=== PATIENT | male | born 1935 | race Caucasian/White ===

== ENCOUNTER 2016-11-27 14:36 | Inpatient (IN) | payer MEDICARE ==
[~2016-11-27] VITALS: Ht 182.9 cm; Wt 125.0 kg
[2016-11-27] VITALS (7 sets, daily range): BP systolic 125–135; BP diastolic 69–85; PULSE 76–88; RESP 16–20; O2SAT 96–100
[~2016-11-27 14:36] MED LIST: ANT25 PO; ASPI81TA35 PO; FURO80TA PO; K20 PO; LISI40TA13 PO; LOPRESSOR25 MG PO; LOV120 SQ; WARF7.5T2 PO
--- NOTE | 2016-11-27 16:04 | ED.REPORT ---
HPI-General Illness Date of Service Nov 27, 2016 ED Provider: Obed Cerrato MD This is an 81 year old male with a history of diverticulitis, hypothyroidism, and aortic valve replacement, anticoagulated on warfarin presenting to the emergency department due dark, tarry stools that began 8 hours ago. Pt reports two episodes of dark brown and black stool since awakening today. Associated symptoms include dizziness, lightheadedness, and LLQ abdominal pain. Denies fever, chills, nausea, vomiting, or dysuria. Nursing Notes Stated Complaint: POSSIBLE INTERNAL BLEEDING Chief Complaint: General Complaint Nursing Notes Reviewed: Yes Allergies: Coded Allergies: acetaminophen (Verified Allergy, Intermediate, Rash,Itching,, 03/21/11) Scheduled Aspirin (Aspirin) 81 Mg Tablet 81 MG PO DAILYWD Bumetanide (Bumetanide) 2 Mg Tablet 4 MG PO QAM Cholecalciferol (Vitamin D3) (Vitamin D3) 2,000 Unit Tablet 2,000 UNIT PO DAILY Gluc HCl/Csa/Antwon Hy/Hyalur AC (Glucosamine Chondroitin Cap) 1 Each Capsule 1 EACH PO BID Levothyroxine (Levothyroxine) 100 Mcg Tablet 100 MCG PO QAM Lisinopril (Lisinopril) 10 Mg Tablet 10 MG PO QAM Metoprolol Tartrate (Metoprolol Tartrate) 25 Mg Tablet 12.5 MG PO BID Multivit with Calcium,Iron,Min (Therapeutic M) 1 Each Tablet 1 EACH PO DAILY Potassium Chloride (Potassium Chloride) 10 Meq Capsule.er 20 MEQ PO DAILYWM TAKE WITH FOOD Tamsulosin ER (Tamsulosin ER) 0.4 Mg Cap.er.24h 0.4 MG PO DAILYWM Ubidecarenone (Coenzyme Q-10) 200 Mg Capsule 200 MG PO DAILY Warfarin Sodium (Warfarin Sodium) 5 Mg Tablet 7.5 MG PO MON/FRI WARFARIN 7.5 MG MON/FRI AND 5 MG ALL OTHER DAYS Warfarin Sodium (Warfarin Sodium) 5 Mg Tablet 5 MG PO DAILY EXCEPT MON/FRI WARFARIN 7.5 MG MON/FRI AND 5 MG ALL OTHER DAYS General Time Seen by MD: 16:01 Chief Complaint Other Hx Obtained From: Patient Arrived By: Walk-in Sudden in Onset?: Yes Onset Occurred: 5 - 8 hours ago Symptom Duration: Since onset Severity: Current: No pain currently Pertinent Negative: Pt denies other symptoms Recent Healthcare: No recent doctor visit, No recent hospitalization Similar Sx Previous: No Past Medical History Past Medical History Diverticulitis Hypothyroidism On warfarin Hx Bladder cancer Past Surgical History Open heart surgery Ambulatory Status Independent Review of Systems Full Review of Systems Constitutional: Denies: Chills, Fever Cardiovascular: Denies: Chest pain GI: Reports: Hematochezia, Denies: Abdominal pain, Diarrhea, Nausea, Vomiting Male: Denies Dysuria Neurologic: Reports: Dizziness, Lightheaded Complete sys rev & neg: except as marked. Physical Exam Vital Signs Vital Signs Date Time Temp Pulse Resp B/P Pulse Ox O2 Delivery O2 Flow Rate FiO2 11/27/16 17:30 86 16 129/78 99 Room Air 11/27/16 17:02 86 16 129/78 99 11/27/16 14:52 36.4 88 20 135/85 96 Room Air Initial VS: Reviewed General/Constitutional: Well-developed, Well-nourished Head / Eyes: Atraumatic, Normocephalic, PERRL ENT: Mucous membranes moist, Conjunctiva normal, No scleral icterus Neck: Supple, Non-tender, Full range of motion Respiratory: Breath sounds normal, Clear to auscultation, No respiratory distress Cardiovascular: Regular rate & rhythm, Heart sounds normal, Intact distal pulses Abdomen / GI: Soft, Non-tender, No guarding, No rebound, No distention Extremities: Vascular intact, Neuro intact, No swelling, No tenderness Skin: Warm, Dry, No cyanosis Neurologic: Alert, Oriented, Nonfocal Psychiatric: Mood/affect normal, Behavior normal, Normal thought content Rectum / Perineum: No fecal impaction, No fissures, No hemorrhoids Gross red blood Guaiac positive Interpretation & Diagnostics Lab Results Interpretation Result Diagram: 11/27/16 1555 11/27/16 1555 Test 11/27/16 15:55 11/27/16 16:00 11/27/16 17:05 White Blood Count 5.0th/mm3 (3.8-10.1) Red Blood Count 3.23mil/mm3 (4.40-5.80) Hemoglobin 8.6g/dL (13.8-17.2) Hematocrit 27.5% (41.0-50.0) Mean Corpuscular Volume 85.1fL (81-100) Mean Corpuscular Hemoglobin 26.6pg (27.0-35.0) Mean Corpuscular Hemoglobin Concent 31.3% (32.0-37.0) Red Cell Distribution Width 15.8% (12.3-15.4) Platelet Count 198bil/L (150-400) Neutrophils (%) (Auto) 75.2% (40-74) Lymphocytes (%) (Auto) 11.5% (14-46) Monocytes (%) (Auto) 12.5% (4-12) Eosinophils (%) (Auto) 0% (0-5) Basophils (%) (Auto) 0.6% (0-3) Prothrombin Time 23.6sec (8.1-12.5) Prothromb Time International Ratio 2.17ratio Sodium Level 133mEq/L (134-144) Potassium Level 4.3mEq/L (3.5-5.2) Chloride Level 92mEq/L (97-108) Carbon Dioxide Level 24mmol/L (18-29) Blood Urea Nitrogen 41mg/dL (8-27) Creatinine 1.33mg/dL (0.76-1.27) Estimat Glomerular Filtration Rate 55mL/min (>59) Glucose Level 119mg/dL (60-99) Calcium Level 9.4mg/dL (8.5-10.1) Total Bilirubin 1.7mg/dL (0.0-1.2) Aspartate Amino Transf (AST/SGOT) 30U/L (0-50) Alanine Aminotransferase (ALT/SGPT) 16U/L (0-44) Alkaline Phosphatase 180U/L (25-160) Total Protein 8.1g/dL (6.4-8.4) Albumin 4.0g/dL (3.4-5.0) Hold Urine Received (Received) ECG Interpretation ECG Interpretation: NSR at a rate of 86 RBBB Time: 16:44 Interpreted by: ED physician Re-Eval/Medical Decision Med Decision/Clinical Course 81-year-old male on Coumadin for history of aortic valve replacement presenting with rectal bleeding today. His stool is grossly bloody on my rectal exam. His hemoglobin is 8.6. Previous 9.6 from several years ago. He is hemodynamically stable. Discussed with GI who recommends admission with correction of INR and colonoscopy. Gave Vitamin K in ER. Consultation #1: Referral / Consult Name: Jacob Stephens MD Call Returned at: 16:33 Cost And Sales Record Supervisor: Agrees with eval, Agrees with plan Note: GI, plan for admission Consultation #2: Referral / Consult Name: Nayan Cash Consulted With: Hospitalist Call Returned at: 17:00 Cost And Sales Record Supervisor: Accepts admit Counseled Regarding: Diagnosis, Lab results, Need for follow-up, Need for admission Discharge & Departure Primary Impression: Gastrointestinal bleed GI bleed type/associated pathology: unspecified gastrointestinal hemorrhage type Qualified Code: K92.2 - Gastrointestinal hemorrhage, unspecified Disposition: ADMITTED TO HOSPITAL Discharge Condition All VS Reviewed: Yes Condition: Stable Referrals: Bridger Hitchcock DO (PCP) Scribe Attestation Portions of this note were transcribed by Em Melvin. I, Dr. Cerrato personally performed the history, physical exam and medical decision-making; I reviewed and confirmed the accuracy of the information in the transcribed note. Signed by Tami Benavidez, 11/27/2016 at 17:00. Obed Cerrato MD Nov 27, 2016 16:04 EM MELVIN Nov 27, 2016 16:08
[2016-11-27 16:08] LABS: BASOPHILS % (AUTO) 0.6 % (0-3); EOSINOPHILS % (AUTO) 0 % (0-5); MONOCYTES % (AUTO) 12.5 % (4-12); Mean Corpuscular Hemoglobin 26.6 pg (27.0-35.0); Mean Corpuscular Volume 85.1 fL (81-100); NEUTROPHILS % (AUTO) 75.2 % (40-74); Platelet Count 198 bil/L (150-400)
[2016-11-27 16:24] LABS: INR 2.17 ratio
[2016-11-27] MEDS ORDERED: 0.9% Sodium Chloride 1,000 ML IV ONE ×2 (16:24→19:20)
[2016-11-27] MEDS ORDERED: Phytonadione (Adult) 10 mg/1 mL Inj PO ONE (17:05)
[2016-11-27] MEDS ORDERED: Alum-Mag Hydrox-Simeth 30 mL Suspension PO PRN ×2 (17:05→19:20)
[2016-11-27] MEDS ORDERED: Ondansetron 2 mg/mL 2 mL Inj IVPUSH PRN ×2 (17:05→19:20)
[2016-11-27] MEDS ORDERED: WARF5TAB7 PO ×2 (17:24)
[2016-11-27] MEDS ORDERED: LISI10TA PO (17:24)
[2016-11-27] MEDS ORDERED: TAMS0.4C29 PO (17:24)
[2016-11-27] MEDS ORDERED: POTA10CA42 PO (17:24)
[2016-11-27] MEDS ORDERED: BUME2TAB3 PO (17:24)
[2016-11-27] MEDS ORDERED: CHOL200025 PO (17:27)
[2016-11-27] MEDS ORDERED: UBID200C31 PO (17:27)
[2016-11-27] MEDS ORDERED: LEVO100T6 PO (17:27)
[2016-11-27] MEDS ORDERED: ASPI-973 PO (17:27)
[2016-11-27] MEDS ORDERED: MULT-140 PO (17:27)
[2016-11-27] MEDS ORDERED: METO25TA6 PO (17:27)
[2016-11-27] MEDS ORDERED: GLUC1CAP13 PO (17:30)
--- NOTE | 2016-11-27 17:55 | NUR ---
Admission Pt arrived on [facility] by wheelchair to rm [id number]. A/Ox3, RA, no complains of increased pain, SOB. sts is " feeling light headed". Pt able to transfer self from wheel chair to bed. Pt orientation video in place. Oriented to , call light, and visiting hours. Will continue to monitor.
[2016-11-27 18:27] LABS: APPEARANCE,URINE CLEAR (CLEAR,HAZY); COLOR,URINE YELLOW (YELLOW); OCCULT BLOOD,URINE NEGATIVE (NEGATIVE); UROBILINOGEN,URINE NORMAL (NORMAL)
[2016-11-27] MEDS ORDERED: Polyethylene Glycol (PEG) 17 Gm Powder PO PRN (19:20)
--- NOTE | 2016-11-27 19:25 | PCM.HPMED ---
Subjective Date of Service Nov 27, 2016 Primary Provider: Admitting Physician: Nayan Cash Primary Care Physician: Bridger Hitchcock DO Attending Physician: Nayan Cash Chief Complaint: blood in stool History of Present Illness: 81 year old male with a history of diverticulosis, and aortic valve replacement with a mechanical valve and thus on chronic anticoagulation with Coumadin as well as distant history of peptic ulcer disease presents today with concern about blood in his stool. He says that he occasionally has hemorrhoidal bleeds but two days ago noticed that his stool color was different and appeared "brownish-red" and "mucousy". Last night he couldn't sleep because of his heart racing somewhat and this morning he had two more episodes of "brownish-red " stools. He had mild lightheadedness and mild left lower quadrant abdominal discomfort but managed to finish filing his taxes and running his errands. In the ED it is reported that patient's digital rectal exam was notable for fresh red blood. He received 10mg of PO Vitamin K and GI service has been notified and consulted. Patient otherwise denies any chest pain, SOB, nausea, vomiting or stomach pain. He denies any lightheadedness right now. Allergies Coded Allergies: acetaminophen (Verified Allergy, Intermediate, Rash,Itching,, 03/21/11) Home Medications Tamsulosin ER 0.4 Mg Cap.Er.24h 0.4 Mg PO DAILYWM Warfarin Sodium 5 Mg Tablet 7.5 Mg PO MON/FRI 30 Days WARFARIN 7.5 MG MON/FRI AND 5 MG ALL OTHER DAYS Lisinopril 10 Mg Tablet 10 Mg PO QAM 30 Days Metoprolol Tartrate 25 Mg Tablet 12.5 Mg PO BID 30 Days Aspirin 81 Mg Tablet 81 Mg PO DAILYWD Bumetanide 2 Mg Tablet 4 Mg PO QAM Potassium Chloride 10 Meq Capsule.Er 20 Meq PO DAILYWM Levothyroxine 100 Mcg Tablet 100 Mcg PO QAM Cholecalciferol (Vitamin D3) 2,000 Unit Tablet 2,000 Unit PO DAILY Multivit with Calcium,Iron,Min 1 Each PO DAILY Gluc HCl/Csa/Antwon Hy/Hyalur AC 1 Each PO BID Ubidecarenone 200 Mg Capsule (Coenzyme Q-10) 200 Mg PO DAILY Exam Vital Signs & I/O Vital Sign- Last 8 Hours Date Time Temp Pulse Resp B/P Pulse Ox O2 Delivery O2 Flow Rate FiO2 11/27/16 18:38 86 11/27/16 18:27 36.1 86 134/75 100 Room Air 11/27/16 17:30 86 16 129/78 99 Room Air 11/27/16 17:02 86 16 129/78 99 11/27/16 14:52 36.4 88 20 135/85 96 Room Air Lab & Micro Results Laboratory Tests Test 11/27/16 15:55 11/27/16 16:00 11/27/16 17:05 White Blood Count 5.0th/mm3 (3.8-10.1) Red Blood Count 3.23mil/mm3 (4.40-5.80) Hemoglobin 8.6g/dL (13.8-17.2) Hematocrit 27.5% (41.0-50.0) Mean Corpuscular Volume 85.1fL (81-100) Mean Corpuscular Hemoglobin 26.6pg (27.0-35.0) Mean Corpuscular Hemoglobin Concent 31.3% (32.0-37.0) Red Cell Distribution Width 15.8% (12.3-15.4) Platelet Count 198bil/L (150-400) Neutrophils (%) (Auto) 75.2% (40-74) Lymphocytes (%) (Auto) 11.5% (14-46) Monocytes (%) (Auto) 12.5% (4-12) Eosinophils (%) (Auto) 0% (0-5) Basophils (%) (Auto) 0.6% (0-3) Prothrombin Time 23.6sec (8.1-12.5) Prothromb Time International Ratio 2.17ratio Sodium Level 133mEq/L (134-144) Potassium Level 4.3mEq/L (3.5-5.2) Chloride Level 92mEq/L (97-108) Carbon Dioxide Level 24mmol/L (18-29) Blood Urea Nitrogen 41mg/dL (8-27) Creatinine 1.33mg/dL (0.76-1.27) Estimat Glomerular Filtration Rate 55mL/min (>59) Glucose Level 119mg/dL (60-99) Calcium Level 9.4mg/dL (8.5-10.1) Total Bilirubin 1.7mg/dL (0.0-1.2) Aspartate Amino Transf (AST/SGOT) 30U/L (0-50) Alanine Aminotransferase (ALT/SGPT) 16U/L (0-44) Alkaline Phosphatase 180U/L (25-160) Total Protein 8.1g/dL (6.4-8.4) Albumin 4.0g/dL (3.4-5.0) Hold Urine Received (Received) Urine Color Yellow (YELLOW) Urine Appearance Clear (CLEAR,HAZY) Urine pH 6.0 (5.0-8.0) Urine Specific [place] 1.010 (1.003-1.035) Urine Protein Negativemg/dL (NEG,TRACE) Urine Glucose (UA) Negativemg/dL (NEGATIVE) Urine Ketones Tracemg/dL (NEGATIVE) Urine Occult Blood Negative (NEGATIVE) Urine Nitrite Negative (NEGATIVE) Urine Bilirubin Negative (NEGATIVE) Urine Urobilinogen Normalmg/dL (NORMAL) Urine Leukocyte Esterase Negative (NEGATIVE) Urine RBC 0-2/hpf (0-2) Urine WBC 0-5/hpf (0-5) Urine Epithelial Cells Few/hpf (NONE-MOD) Urine Crystals None seen (NONE SEEN) Urine Bacteria Few/hpf (NONE-FEW) Urine Hyaline Casts None/lpf (NONE) Urine Granular Casts None seen (NONE SEEN) Urine Waxy Casts None seen (NONE SEEN) Urine Red Blood Cell Casts None seen (NONE SEEN) Urine White Blood Cell Casts None seen (NONE SEEN) Urine Mucus None seen (None Seen) Urine Trichomonas None seen (NONE SEEN) Urine Yeast None (NONE SEEN) Urinalysis Comment None Urine Culture Reflexed Not indicated Result Diagram: 11/27/16 1555 11/27/16 1555 Review of Systems: Constitutional: Negative, except as otherwise mentioned in the history above. Ophthalmologic: Negative, except as otherwise mentioned in the history above. Cardiovascular: Negative, except as otherwise mentioned in the history above. Respiratory: Negative, except as otherwise mentioned in the history above. Gastrointestinal: Negative, except as otherwise mentioned in the history above. Genitourinary: Negative, except as otherwise mentioned in the history above. Musculoskeletal: Negative, except as otherwise mentioned in the history above. Neurological: Negative, except as otherwise mentioned in the history above. Psychiatric: Negative, except as otherwise mentioned in the history above. Hematologic/Lymphatic: Negative, except as otherwise mentioned in the history above. Allergic/Immunologic: Negative, except as otherwise mentioned in the history above. PMH 1. History of [place] mechanical aortic valve replacement (on chronic Coumadin ) 2. Bladder cancer status post tumor resection 3. Hematuria. 4. Hypertension. 5. Coronary artery disease and 2-vessel bypass in 1995. 6. History of peptic ulcer disease many years ago, has not had any GI bleeding since then. 7. Hypertension. 8. Diverticulosis and diverticulitis 9. Possible diastolic heart failure Surgical History aortic valve replacement as noted above Family History denies any family history of heart disease or cancers Social History Hx Alcohol Use: Yes (1-2 drinks daily. denies any history of shakes, tremors, or withdrawals.) Hx Substance Use: No Hx Tobacco Use: No Exam Vital Signs Vital Sign - Last Date Time Temp Pulse Resp B/P Pulse Ox O2 Delivery O2 Flow Rate FiO2 11/27/16 18:38 86 11/27/16 18:27 36.1 134/75 100 Room Air 11/27/16 17:30 16 General: Alert, Oriented X3, Cooperative, No Acute Distress Head: Normal Eyes: PERRLA, EOMI, Scleral Anicteric Nose: Mucous Membr Moist/[place] Mouth: Mucous Membr Moist/[place] Neck: Supple Chest & Lungs: Chest Wall Normal, Clear to auscultation & percussion Cardiovascular: Regular Rate/Rhythm Pulses: NL carotid, radial, femoral, DP, PT Abdomen: Non-tender, Non-distended, Normoactive bowel tones, Soft Extremities: Other (1+ edema in LE bilat) Skin: Other (chronci arterial/venous insuff changes in LE bilat) Neurological: Grossly Neurologically Intact, Cranial Nerves 2-12 Intact, Normal Speech Lymphatic: Other Lymph Nodes (no significant lymphadenopathy) Additional Information: Psych: appropriate affect. Lab and Diagnostics Result Diagram: 11/27/16 1555 11/27/16 1555 Assessment & Plan 81 year old male with a history of diverticulosis, and aortic valve replacement with a mechanical valve and thus on chronic anticoagulation with Coumadin as well as distant history of peptic ulcer disease presents with concern about blood in his stool. # Acute gastrointestinal bleed, present on admission. ongoing - unclear at this time if upper or lower GI. His has a risk of both given history of diverticulosis and peptic ulcer in the past. There is some conflicting report between patient and ED report about possible melanotic stool. - NPO - start Protonix drip - check serial h/h - hold home dose Aspirin and Coumadin - already received Vit K in the ED. Followup repeat INR in AM - GI consulted already in the ED. Will followup with official recommendations # History of mechanical aortic valve and chronic anticoagulation, preset on admission. - INR reversal with Vit K as noted above - followup repeat INR in AM - resume anticoagulation as soon OK by GI consult # Acute kidney injury. present on admission. - likely pre-renal from ongoing bleeding - IV fluid and followup - avoid nephrotoxic medications # Chronic normocytic anemia. present on admission. - h/h is about baseline on admission though I suspect his true h/h is much lower given likely intervascular dehydration as evident by BUN/Cr - follow serial h/h as noted above # History of coronary artery disease and hypertension. currently stable - hold ASA as noted - hold blood pressure medications as well until certain will remain hemodynamically stable # Hypothyroidism, chronic. presume stable - continue with home dose Levothyroxine - check TSH # Possible chronic diastolic heart failure with chronic lower extremity edema. appears stable and compensated at this time. - hold home dose diuretics until certain hemodynamically stable as well as given evidence of MUSHTAQ Expected length of hospital stay is greater than 2 midnights and likely 2-3 days Time spent 60 min Nayan Cash Nov 27, 2016 19:25
[2016-11-27] MEDS: Pantoprazole Inj 80 MG in 0.9% Sodium Chloride 80 ML IV SCH (20:26)
--- NOTE | 2016-11-27 23:18 | CONS ---
[address] [address] CONSULTATION REPORT PATIENT: SHARYN AGEE : 1935 MR#: [id number] ADMIT: 11/27/2016 JOB ID: [id number] DATE OF SERVICE: 11/27/2016 REASON FOR CONSULTATION: Bright red blood per rectum. HISTORY OF PRESENT ILLNESS: This is an 81-year-old male with history of diverticulitis, hypothyroidism, aortic valve replacement, currently on Coumadin, who presents here for bright red blood per rectum for the past two days. The patient states he has seen bright red blood per rectum that covers his stool toilet one time per day. The patient states he had an EGD 16 years ago which showed a gastric ulcer which was oozing and he states that this was treated at that point in time. The patient also states he had a colonoscopy that was done in the past, greater than 10 years ago, which showed a few colon polyps. I have no records of these procedures. The patient states he had a history of diverticulitis that was seen on CAT scan. No diverticula he said was noticed on the colonoscopy. The patient denies melena, nausea, vomiting, hematemesis, abdominal pain, change in bowel habits, or unintentional weight loss. The patient presents for further evaluation. The patient was found to have an INR of 2.17 occurring on Coumadin. BUN 41 with creatinine of 1.33. The patient's hemoglobin is 8.6, hematocrit 27.5, MCV 85, white blood cell count 5.0, platelet count 198. The patient presents for further evaluation. PAST MEDICAL HISTORY: As stated above. Diverticulitis, hypothyroidism, aortic valve replacement, on Coumadin, history of bladder cancer. PAST SURGERIES: Aortic valve replacement. ALLERGIES: ACETAMINOPHEN. MEDICATIONS: Scheduled medications: He is currently on aspirin, Lovenox, Lasix, lisinopril, metoprolol, potassium chloride, Coumadin, and meclizine as needed. SOCIAL HISTORY: Unknown. FAMILY HISTORY: Negative for colon cancer, inflammatory bowel disease, or celiac disease. REVIEW OF SYSTEMS: The patient denies headache, blurred vision, nausea, vomiting, chest pain, shortness of breath, abdominal pain, skin rash, joint pain. PHYSICAL EXAMINATION: Vital signs upon presentation: Temperature is 36.4, pulse 83, respiratory rate 16, blood pressure 129/78, 99% on room air. General: In no acute distress. Head: No scars. Eyes: Anicteric. Throat: Supple. Lungs: Clear to auscultation bilaterally. Cardiovascular: Regular rhythm and rate. Abdomen: Soft, nondistended, nontender. Normal bowel sounds. Extremities: No cyanosis, clubbing, edema. LABORATORIES: White count 5.0, hemoglobin 8.6, hematocrit 27.5, MCV 85, platelet count 198. Chemistry: Sodium 133, potassium 4.3, chloride 92, bicarbonate 24, BUN 41, creatinine 1.23, glucose 119, calcium 9.4, total bili 1.7, AST 30, ALT 16, alk phos 180, total protein 8.1, albumin 4..0 PTT 23.6, INR 2.1. ASSESSMENT AND PLAN: This is an 81-year-old male with history of aortic valve replacement, on Coumadin, diverticulitis, hypothyroidism, presents here for consultation for rectal bleeding. Differential diagnosis includes arteriovenous malformation, bleeding polyp, diverticulosis versus hemorrhoids. RECOMMENDATIONS: 1. N.p.o. except for medications. 2. Transfuse packed red blood cells per hospitalist team as needed. 3. Once the INR has improved tomorrow then we will consider doing GoLYTELY prep tomorrow with a colonoscopy with anesthesia for Sunday. Will continue to follow. Patient's INR goal needs to be less than 1.5 for colonoscopy to proceed.
[2016-11-28 01:08] VITALS: BP 106/60; PULSE 78; RESP 18; O2SAT 97
[2016-11-28 05:06] LABS: APPEARANCE,URINE CLEAR (CLEAR,HAZY); COLOR,URINE YELLOW (YELLOW); OCCULT BLOOD,URINE NEGATIVE (NEGATIVE); PH,URINE 5.5 (5.0-8.0); UROBILINOGEN,URINE NORMAL (NORMAL)
[2016-11-28 05:31] VITALS: BP 115/71; PULSE 74; RESP 18; O2SAT 96
--- NOTE | 2016-11-28 06:16 | NUR ---
Uneventful Night Pt rested intermittently during the night. Denies chest pain or discomfort. Denies SOB, N/V. No complaints of pain. NPO. Call light within reach, using appropriately. Pleasant and cooperative with care.
[2016-11-28 07:03] LABS: Mean Corpuscular Hemoglobin 26.8 pg (27.0-35.0); Mean Corpuscular Volume 86.4 fL (81-100)
[2016-11-28 07:10] LABS: INR 1.91 ratio
[2016-11-28 07:37] LABS: Magnesium 2.3 mg/dL (1.6-2.6)
[2016-11-28] MEDS: Pantoprazole Inj 80 MG in 0.9% Sodium Chloride 80 ML IV SCH ×2 (08:10→18:23)
[2016-11-28] MEDS ORDERED: Non-Formulary Medication (Ubidecarenone (Coenzyme Q-10) 200 MG) PO SCH (08:30)
[2016-11-28 09:29] VITALS: BP 112/62; PULSE 79; RESP 18; O2SAT 100
--- NOTE | 2016-11-28 10:35 | PCM.PNMED ---
Subjective Date of Service Nov 28, 2016 Subjective GASTROENTEROLOGY PROGRESS NOTE: Patient reports mild discomfort in the left lower quadrant abdomen from the fasting. He notes similar discomfort in the past when he skipped meals and states that it is related to the diverticulitis he had before. Otherwise, he denies any symptoms today. No overt signs of bleeding. His last BM was yesterday and it was dark brown per the patient. He denies nausea, vomiting, hematemesis, CP, SOB, or dizziness. He has not gotten any blood transfusion so far. His INR trending down to 1.91 today. Exam Vital Signs Vital Sign - Last Date Time Temp Pulse Resp B/P Pulse Ox O2 Delivery O2 Flow Rate FiO2 11/28/16 09:29 36.6 79 18 112/62 100 Room Air Intake and Output 11/27/16 11/27/16 11/28/16 Cumulative From/Thru 15:00 23:00 07:00 11/27/16 14:52 - 11/28/16 06:32 Intake Total 500 ml 877 ml 1377 ml Output Total 1600 ml 1600 ml Balance 500 ml -723 ml -223 ml Intake Oral 0 ml 0 ml IV Total 500 ml 877 ml 1377 ml Output Urine Total 1600 ml 1600 ml Exam General: Alert, Oriented X3, Cooperative, Sitting comfortably on a chair. No Acute Distress HEENT: NCAT. EOMI. Scleral anicteric. Mucous Membr Moist/[place] Neck: Supple Respiratory: Chest Wall Normal, Clear to auscultation & percussion, No wheezes/ rales/rhonchi. Cardiovascular: Regular Rate/Rhythm, III/ systolic murmur. Abdomen: Soft, Non-tender, Non-distended, Normoactive bowel tones, No organomegaly noted. Lower extremities: Mild-moderate pitting edema in bilateral lower extremities. No clubbing or cyanosis. Severe dry, scaly skin. Neurological: Grossly Neurologically Intact, Cranial Nerves 2-12 Intact, Normal Speech IVs and Medications Medications Reviewed: Medications were reviewed in detail Lab and Diagnostics Result Diagram: 11/28/1661411/28/16614 Assessment & Plan This is an 81-year-old male with history of aortic valve replacement, on Coumadin, diverticulitis, hypothyroidism, presents here for consultation for rectal bleeding. Assessments 1. Rectal bleeding, acute. 2. History of gastric ulcer. 3. History of diverticulitis. 4. Chronic anticoagulation on coumadin. Plans: - Differential diagnosis includes arteriovenous malformation, bleeding polyp, diverticulosis, or hemorrhoids. - Last colonoscopy was over 10 years ago that showed some polyps. - Continue NPO except for meds. - Continue Protonix drip. - Patient has no signs or symptoms of acute diverticulitis. GoLYTELY prep ordered for 1600 today to prepare for colonoscopy with anesthesia tomorrow 2016. - Continue to monitor CBC and INR. Patient's INR's goal needs to be less than 1.5 for colonoscopy to proceed. - H/H have been stable. Transfusion as needed per hospitalist team. Thank you for the consultation and do not hesitate to contact us for any question or concern. Pain Evaluation: Adequate Pain Control GI Prophylaxis: Proton Pump Inhibitor Resuscitation Status: CPR: Attempt Resuscitation Alejandra Young DO Nov 28, 2016 10:35 - follow serial h/h as noted above # History of coronary artery disease and hypertension. currently stable - hold ASA as noted - hold blood pressure medications as well until certain will remain hemodynamically stable # Hypothyroidism, chronic. presume stable - continue with home dose Levothyroxine - check TSH # Possible chronic diastolic heart failure with chronic lower extremity edema. appears stable and compensated at this time. - hold home dose diuretics until certain hemodynamically stable as well as given evidence of MUSHTAQ Expected length of hospital stay is greater than 2 midnights and likely 2-3 days Alejandra Young DO Nov 28, 2016 10:35
[2016-11-28 10:52] VITALS: PULSE 88
[2016-11-28 15:46] VITALS: BP 132/66; PULSE 89; RESP 18; O2SAT 100
[2016-11-28] MEDS ORDERED: PEG/Electrolytes 4,000 mL Solution PO ONE (16:00)
--- NOTE | 2016-11-28 17:27 | PCM.PNMED ---
Subjective Date of Service Nov 28, 2016 Subjective no further stool or blood per rectum since yesterday. Exam Vital Signs Vital Sign - Last Date Time Temp Pulse Resp B/P Pulse Ox O2 Delivery O2 Flow Rate FiO2 11/28/16 15:46 36.7 89 18 132/66 100 Room Air Intake and Output 11/27/16 11/27/16 11/28/16 Cumulative From/Thru 15:00 23:00 07:00 11/27/16 14:52 - 11/28/16 06:32 Intake Total 500 ml 877 ml 1377 ml Output Total 1600 ml 1600 ml Balance 500 ml -723 ml -223 ml Intake Oral 0 ml 0 ml IV Total 500 ml 877 ml 1377 ml Output Urine Total 1600 ml 1600 ml Exam General: Alert, Cooperative, No Acute Distress Head: Normal Eyes: PERRLA, EOMI, Scleral Anicteric Nose: Mucous Membr Moist/[place] Mouth: Mucous Membr Moist/[place] Neck: Supple Chest & Lungs: Chest Wall Normal, Clear to auscultation bilaterally Cardiovascular: Regular Rate/Rhythm Abdomen: Non-tender, Non-distended, Normoactive bowel tones, Soft Extremities: Other (1+ edema in LE bilat) Skin: Other (chronic arterial/venous insufficiency changes in LE bilat) Neurological: Grossly Neurologically Intact, Normal Speech IVs and Medications Medications Reviewed: Medications were reviewed in detail Lab and Diagnostics Result Diagram: 11/28/1661411/28/16614 Assessment & Plan 81 year old male with a history of diverticulosis, and aortic valve replacement with a mechanical valve and thus on chronic anticoagulation with Coumadin as well as distant history of peptic ulcer disease presents with concern about blood in his stool. # Acute gastrointestinal bleed, present on admission. - unclear at this time if upper or lower GI. His has a risk of both given history of diverticulosis and peptic ulcer in the past. There is some conflicting report between patient and ED report about possible melanotic stool. - h/h stable - appreciate GI consult. will followup with recs - continue Protonix drip - hold home dose Aspirin and Coumadin - already received Vit K in the ED. Followup repeat INR in AM # History of mechanical aortic valve and chronic anticoagulation, preset on admission. - INR reversal with Vit K as noted above - followup repeat INR in AM - resume anticoagulation as soon OK by GI consult # Acute kidney injury. present on admission. Resolved - likely pre-renal - avoid nephrotoxic medications # Chronic normocytic anemia. present on admission. - h/h is about baseline and stable. - follow repeat labs in AM or sooner if has further bloody bowel movement # History of coronary artery disease and hypertension. currently stable - hold ASA as noted - resume home medication # Hypothyroidism, chronic. presume stable - continue with home dose Levothyroxine - TSH elevated - check rest of thyroid panel # Possible chronic diastolic heart failure with chronic lower extremity edema. appears stable and compensated at this time. - Resume home dose diuretics in am Dispo: 1-2 days pending GI workup GI Prophylaxis: Proton Pump Inhibitor Resuscitation Status: CPR: Attempt Resuscitation Nayan Cash Nov 28, 2016 17:27
[2016-11-28 19:53] VITALS: BP 127/63; PULSE 79; RESP 18; O2SAT 98
[2016-11-29] VITALS (12 sets, daily range): BP systolic 70–125; BP diastolic 45–71; PULSE 54–90; RESP 12–18; O2SAT 97–100
--- NOTE | 2016-11-29 01:15 | NUR ---
Bowel Prep Pt completed bowel prep at 1945, reports BM's clear. No complaints of chest pain or discomfort. Denies SOB, n/v. Call light within reach, using appropriately. Frequent rounding in place. Pleasant and cooperative with care.
[2016-11-29 02:10] LABS: Thyroxine (T4) 4.8 ug/dL (4.5-12.0)
[2016-11-29] MEDS: Pantoprazole Inj 80 MG in 0.9% Sodium Chloride 80 ML IV SCH ×3 (05:38→20:38)
[2016-11-29 06:22] LABS: INR 1.57 ratio
[2016-11-29 06:32] LABS: Mean Corpuscular Hemoglobin 26.7 pg (27.0-35.0); Mean Corpuscular Volume 87.5 fL (81-100)
--- NOTE | 2016-11-29 10:51 | PCM.PNMED ---
Subjective Date of Service Nov 29, 2016 Subjective no further blood in stool despite the bowel prep yesterday. denies any other new issues/complaints Exam Vital Signs Vital Sign - Last Date Time Temp Pulse Resp B/P Pulse Ox O2 Delivery O2 Flow Rate FiO2 11/29/16 10:40 36.6 82 18 118/71 99 Room Air Intake and Output 11/28/16 11/28/16 11/29/16 Cumulative From/Thru 15:00 23:00 07:00 11/27/16 14:52 - 11/29/16 06:30 Intake Total 302 ml 265 ml 1944 ml Output Total 325 ml 600 ml 2525 ml Balance -23 ml -335 ml -581 ml Intake Oral 0 ml 0 ml 0 ml IV Total 302 ml 265 ml 1944 ml Output Urine Total 325 ml 600 ml 2525 ml # Bowel Movements 3 3 6 Exam General: Alert, Cooperative, No Acute Distress Head: Normal Eyes: PERRLA, EOMI, Scleral Anicteric Nose: Mucous Membr Moist/[place] Mouth: Mucous Membr Moist/[place] Neck: Supple Chest & Lungs: Chest Wall Normal, Clear to auscultation bilaterally Cardiovascular: Regular Rate/Rhythm Abdomen: Non-tender, Non-distended, Normoactive bowel tones, Soft Extremities: Other (1+ edema in LE bilat) Skin: Other (chronic arterial/venous insufficiency changes in LE bilat) Neurological: Grossly Neurologically Intact, Normal Speech IVs and Medications Medications Reviewed: Medications were reviewed in detail Lab and Diagnostics Result Diagram: 11/29/16 0600 11/29/16 0600 Assessment & Plan 81 year old male with a history of diverticulosis, and aortic valve replacement with a mechanical valve and thus on chronic anticoagulation with Coumadin as well as distant history of peptic ulcer disease presents with concern about blood in his stool. # Acute gastrointestinal bleed, present on admission. - unclear at this time if upper or lower GI. His has a risk of both given history of diverticulosis and peptic ulcer in the past. There is some conflicting report between patient and ED report about possible melanotic stool. - h/h stable since admission - appreciate GI consult. will followup with recs - continue Protonix drip - hold home dose Aspirin and Coumadin until OK by GI - received Vit K 10mg PO in the ED. INR subtherapeutic today - plan for colonoscopy later today # History of mechanical aortic valve and chronic anticoagulation, preset on admission. - INR reversal with Vit K as noted above - resume anticoagulation as soon as possible and OK by GI consult # Acute kidney injury. present on admission. Resolved - likely pre-renal - avoid nephrotoxic medications # Chronic normocytic anemia. present on admission. - h/h is about baseline and stable. - follow repeat labs in AM or sooner if has further bloody bowel movement # History of coronary artery disease and hypertension. currently stable - hold ASA as noted - continue with home medication # Hypothyroidism, chronic. presume stable - continue with home dose Levothyroxine - TSH elevated but T4 within normal limit (although borderline normal at lower end). May consider increasing dose of Levothyroxine but will defer to primary care provider as outpatient so as to followup progress appropriately. # Possible chronic diastolic heart failure with chronic lower extremity edema. appears stable and compensated at this time. - Resume home dose diuretics in am if remain stable after colonoscopy Dispo: 1-2 days pending GI workup as well as resumption of anticoagulation and bridging back to Coumadin (for mechanical aortic valve) GI Prophylaxis: Proton Pump Inhibitor Resuscitation Status: CPR: Attempt Resuscitation Nayan Cash Nov 29, 2016 10:51
--- NOTE | 2016-11-29 11:25 | NUR ---
Wound Care 81 yo male admitted to [facility] with GI bleed, wound order to assess legs received and patient seen at bedside. Claus le's are edematous 2+ and heavy with stasis dermatitis, Wound on right lateral lower leg has irregular borders and is 7 cm L x 4 cm W x 0.1 cm D, wound is cleaned with saline and gauze, dressed with aquacell ag, and a 4 layer compression wrap. No signs or symptoms of [id number] at wound site. Stasis ulceration at right lower leg, good pulses, compression wrapped will change dressing 12/01.
[2016-11-29] MEDS ORDERED: Ketamine 10 mg/mL 20 mL Inj ONE (13:17)
[2016-11-29] MEDS ORDERED: Propofol 10,000 mCg/mL 20 mL Inj ONE (13:17)
--- NOTE | 2016-11-29 14:22 | NUR ---
Social Work-initial assessment: Data:See initial assessment. Pt is an 81 y/o male who was admitted on 11/29/16 for GI bleed per H&P. Pt's insurance is [employer] and PCP is Bridger Hitchcock MD. EMR Reviewed. Pt's readmission score is 3-high risk. SW met with pt at bedside to discuss discharge planning, SW role explained. Pt is alert and oriented x3. Pt resides at home alone in a 2 level home with 10 internal steps and no steps to enter where pt remains independent with basic ADLs. Pt uses a cane at baseline and drives POV. Pt has no HH or SNF history. Pt reports he has completed DPOA/ advanced directive and will provide the hospital with a copy. Pt has no termite renewal inspector care or VA benefits. Per morning rounds pt to undergo colonoscopy today. Pt to discharge home via self in POV or via son. SW provided phone number and plan on white board in room. No further needs assessed at this time. SW will continue to follow. Assessment:Pt who resides at home alone. Plan:Pt to likely discharge home with no needs via POV. Pt will undergo colonoscopy. SW will continue to follow. RYLEE Serrano Addendum: 11/29/16 at 1434 by DAVID ZHOU SS Amended: Links added.
--- NOTE | 2016-11-29 15:11 | NUR ---
Off unit Pt off unit to Endo for colonoscopy. [employer] notified. Addendum: 11/29/16 at 1640 by DENNYS OCASIO RN Pt back on unit, bench repair technician notified.
[2016-11-29] MEDS ORDERED: Lactated Ringer's 1,000 ML IV ONE ×2 (15:29→16:08)
--- NOTE | 2016-11-29 15:32 | PCM.HPANE ---
Patient Data Surgeon Admitting Provider:Nayan Cash Attending Provider:Nayan Cash Primary Care Physician:Bridger Hitchcock DO Other Provider: Reason for Visit Gi Bleed Ht/WT & BMI Height (Feet): 6 Height (Inches): 0.00 Weight (Kilograms): 131.300 Body Mass Index 39.00 Allergies Coded Allergies: acetaminophen (Verified Allergy, Intermediate, Rash,Itching,, 11/27/16) Past Anesthesia History Anesthesia History: Denies:: Anesthesia Reactions Diabetes History Hx Diabetes?: No MRSA MRSA: No Medications Blood Thinner: Coumadin Last Dose Blood Thinner: Nov 27, 2016 Hypertension Medication: Yes Home Meds Incl Beta Eden: Yes Date Beta Eden Taken: Nov 29, 2016 Time Beta Eden Taken: 08:00 Reported Medications Gluc HCl/Csa/Antwon Hy/Hyalur AC (Glucosamine Chondroitin Cap)1 Each Capsule1 Each PO BID 11/27/16 Multivit with Calcium,Iron,Min (Therapeutic M)1 Each Tablet1 Each PO DAILY 11/27/16 Cholecalciferol (Vitamin D3) (Vitamin D3)2,000 Unit Tablet2,000 Unit PO DAILY 11/27/16 Ubidecarenone (Coenzyme Q-10)200 Mg Ifmpkef088 Mg PO DAILY 11/27/16 Aspirin 81 Mg Efdkqw06 Mg PO DAILYWD Ref 0 11/27/16 Metoprolol Tartrate 25 Mg Keusjb05.5 Mg PO BID 30 Days Ref 0 11/27/16 Levothyroxine 100 Mcg Cowdhf968 Mcg PO QAM For Thyroid Replacement Ref 0 11/27/16 Warfarin Sodium 5 Mg Tablet5 Mg PO DAILY EXCEPT MON/FRI 30 Days Ref 0 WARFARIN 7.5 MG MON/FRI AND 5 MG ALL OTHER DAYS 11/27/16 Warfarin Sodium 5 Mg Tablet7.5 Mg PO MON/FRI 30 Days Ref 0 WARFARIN 7.5 MG MON/FRI AND 5 MG ALL OTHER DAYS 11/27/16 Tamsulosin ER 0.4 Mg Cap.er.24h0.4 Mg PO DAILYWM Ref 0 11/27/16 Lisinopril 10 Mg Yyubmd42 Mg PO QAM 30 Days Ref 0 11/27/16 Potassium Chloride 10 Meq Capsule.er20 Meq PO DAILYWM 30 Days Ref 0 TAKE WITH FOOD 11/27/16 Bumetanide 2 Mg Tablet4 Mg PO QAM Ref 0 11/27/16 Discontinued Reported Medications Enoxaparin-Expunged Drug, Do Not Renew! (Lovenox-Expunged Drug, Do Not Renew!) 120 Mg/0.8 Ml Disp.uskau753 Mg SQ BID 03/17/11 Lisinopril-Expunged Drug, Do Not Renew! 40 Mg Eaawiz92 Mg PO AM 03/17/11 Meclizine-Expunged Drug, Do Not Renew! 25 Mg Xmwpey12 Mg PO Q8 PRN 03/17/11 Potassium Chl-Expunged Drug, Do Not Renew! (A-Nex-Rsnpnuma Drug, Do Not Renew!) 20 Meq Tab.er.prt20 Meq PO HS 03/17/11 Metoprolol Tart-Expunged Drug, Do Not Renew! 25 Mg Tab12.5 Mg PO BID 03/17/11 Warfarin Sodium Inactive Drug Do Not Use (Coumadin Inactive Drug Do Not Use)7.5 Mg Tablet7.5 Mg PO 6x weekly Sun pt takes 10mg 03/16/11 Furosemide-Expunged Drug, Do Not Renew! (Lasix-Expunged Drug, Do Not Renew!)80 Mg Mhfbhr30 Mg PO HS 03/16/11 Aspirin-Expunged Drug, Do Not Renew! ([place] Aspirin-Expunged Drug, Do Not Renew)81 Mg Tab.chew81 Mg PO DAILYWD 03/16/11 History History of ENT Problems?: No HEENT History: Denies:: Abnormal Airway Cataracts Difficult Intubation Dysphagia Glaucoma Hearing Problem Sinus Problem Denture Type: None Teeth Condition: Within Normal Limits Hx of Heart Problems?: Yes Cardiovascular History: Positive for:: Cardiac Surgery (Valve replacement 11yrs ago) Edema (chronic) Hypertension Valvular Heart Disease (replacement) Denies:: Chest Pain Congestive Heart Failure Heart Murmur Irregular Heartbeat Pacemaker Thrombophlebitis Hx of Respiratory Problem?: Yes Respiratory History: Positive for:: 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) Denies:: Asthma COPD Chest Surgery Dyspnea Emphysema Hemoptysis Pneumonia Hx Neurologic Problems?: No Neurological History: Denies:: Alzheimer's Disease CVA Dementia Dizziness Headaches Multiple Sclerosis Parkinson's Disease Peripheral Neuropathy Seizures TIA Hx of GI Problems?: Yes Gastrointestinal History: Positive for:: Diverticulitis Heartburn Rectal Bleeding (minimal with hard bm somtimes, redish black in color) Denies:: Gastrointestinal Bleeding Hepatitis Hiatal Hernia Hx of Problems?: Yes Genitourinary History: Positive for:: Kidney Stones Denies:: HX of Hemodialysis Urinary Tract Infection HX of Peritoneal Dialysis: No Male Hx: Denies:: Prostate Problems Scrotal Mass Testicular Surgery Skin History: Positive for:: History Skin Disorders? (Skin cancers. sebborhea dermatitis) Hx Musculoskeletal Problems?: No Musculoskeletal History: Denies:: Back Injury Joint Replacement Musculoskeletal Trauma Hx of Psycho/Social Problems?: No Psycho Social History: Denies:: Anxiety Bipolar Disorder Hx Depression Suicide Attempt Hx Surgeries?: Yes (appy, tonsills,CABG, valve replacment, cystoscopy & tumor removal) Hx Any Other Health Problems?: Yes Other History: Positive for:: Cancer (bladder cancer, skin ) Hospitalization Thyroid Disease (hypothryoid) Denies:: Endocrine Disease History Blood Transfusions: Positive for:: Accept Blood Products? Blood Transfusions Denies:: Blood Transfuse Reaction Hx Diabetes: No Hx Alcohol Use: Yes (1-2 drinks daily. denies any history of shakes, tremors, or withdrawals.)Hx Substance Use: No Smoking Status: Never Smoker Have You Smoked inLast 12 mo: No Stop/Bang Treated for Sleep Apnea?: No Do You Have a CPAP Machine?: No S-Snoring: Do You Snore Loudly: No T-Tired: feel tired, fatigued: No O-Obsered: Observed not breath: No P-Blood Pressure: treated: Yes B- Body Mass Index > 35 kg/m2: No A- Age over 50: Yes N- Neck Large Circumference: No G- Gender Male: Yes LUCY Total Score: 3 LUCY Risk Assessment: High Risk, =/>3 Yes LUCY Category 4 OutPt Procedure: Yes Risk Assessment Category Category 1A: Patient has history of documented sleep apnea, and HAS NOT received any narcotic, sedative or anesthesia administration during this stay. Category 1B: Patient has history of documented sleep apnea, and HAS received any narcotic , sedative or anesthesia administration during this stay Category 2: Patient has SUSPECTED Obstructive Sleep Apnea, and HAS received any narcotic , sedative or anesthesia administration during this stay. Category 3: Patient has SUSPECTED Obstructive Sleep Apnea and HAS NOT received narcotic, sedative or anesthesia administration during this stay. Category 4: Outpatient in Procedural Areas with known sleep apnea or who screen positive for High Risk via the STOP/BANG questionnaire. Exam Exam Vital Signs Vital Signs Date Time Temp Pulse Resp B/P Pulse Ox O2 Delivery O2 Flow Rate FiO2 11/29/16 15:21 36.1 68 14 120/68 100 Room Air 11/29/16 13:59 36.6 79 18 103/54 100 Room Air 11/29/16 11:22 62 11/29/16 10:40 36.6 82 18 118/71 99 Room Air 11/29/16 09:18 90 123/68 General Appearance: Alert, Oriented X3, Cooperative, No Acute Distress HEENT/AIRWAY: MP 2 Lungs: Clear to Auscultation, Normal Air Movement Heart: Exam Unremarkable, Regular Rate/Rhythm, No Murmurs/Rubs/[place] Meds/Labs/Diagnostics Admission Meds Current Medications Polyethylene Glycol/ Electrolytes (Colyte) 4,000 ml ONCE ONCE PO Last administered on 11/28/16 16:04; Start 11/28/16 at 16:00; Stop 11/28/16 at 16:01 ; Status DC Lisinopril (Zestril) 10 mg DAILY PO Last administered on 11/29/16 09:22; Start 11/29/16 at 08:30 Metoprolol Tartrate (Lopressor) 12.5 mg BID PO Last administered on 11/29/16 09:22; Start 11/28/16 at 20:30 Tamsulosin HCl (Flomax) 0.4 mg DAILYWM PO Last administered on 11/29/16 09:22 ; Start 11/29/16 at 08:00 Bumetanide (Bumex) 4 mg DAILY PO Last administered on 11/29/16 09:21; Start at 17:30 Labs Test 11/27/16 15:55 11/27/16 17:05 11/28/16 04:29 11/28/16 06:15 Neutrophils (%) (Auto) 75.2% (40-74) Lymphocytes (%) (Auto) 11.5% (14-46) Monocytes (%) (Auto) 12.5% (4-12) Eosinophils (%) (Auto) 0% (0-5) Basophils (%) (Auto) 0.6% (0-3) Urinalysis Comment None Urine Culture Reflexed Not indicated Urine Color Yellow (YELLOW) Urine Appearance Clear (CLEAR,HAZY) Urine pH 5.5 (5.0-8.0) Urine Specific [place] 1.010 (1.003-1.035) Urine Protein Negativemg/dL (NEG,TRACE) Urine Glucose (UA) Negativemg/dL (NEGATIVE) Urine Ketones Negativemg/dL (NEGATIVE) Urine Occult Blood Negative (NEGATIVE) Urine Nitrite Negative (NEGATIVE) Urine Bilirubin Negative (NEGATIVE) Urine Urobilinogen Normalmg/dL (NORMAL) Urine Leukocyte Esterase Negative (NEGATIVE) Urine RBC 0-2/hpf (0-2) Urine WBC 0-5/hpf (0-5) Urine Epithelial Cells Occasional/hpf (NONE-MOD) Urine Crystals None seen (NONE SEEN) Urine Bacteria None/hpf (NONE-FEW) Urine Hyaline Casts None/lpf (NONE) Urine Granular Casts None seen (NONE SEEN) Urine Waxy Casts None seen (NONE SEEN) Urine Red Blood Cell Casts None seen (NONE SEEN) Urine White Blood Cell Casts None seen (NONE SEEN) Urine Mucus Present (None Seen) Urine Trichomonas None seen (NONE SEEN) Urine Yeast None (NONE SEEN) Hold Urine Received (Received) Activated Partial Thromboplast Time 36.7sec (22.8-33.0) Magnesium Level 2.3mg/dL (1.6-2.6) Total Bilirubin 1.4mg/dL (0.0-1.2) Aspartate Amino Transf (AST/SGOT) 28U/L (0-50) Alanine Aminotransferase (ALT/SGPT) 12U/L (0-44) Alkaline Phosphatase 143U/L (25-160) Total Protein 6.4g/dL (6.4-8.4) Albumin 3.3g/dL (3.4-5.0) Thyroid Stimulating Hormone (TSH) 5.260uIU/mL (0.450-4.500) Free Thyroxine Index 2.0 (1.2-4.9) Thyroxine (T4) 4.8ug/dL (4.5-12.0) Triiodothyronine (T3) Uptake 41% (24-39) Test 11/29/16 06:00 White Blood Count 2.6th/mm3 (3.8-10.1) Red Blood Count 3.11mil/mm3 (4.40-5.80) Hemoglobin 8.3g/dL (13.8-17.2) Hematocrit 27.2% (41.0-50.0) Mean Corpuscular Volume 87.5fL (81-100) Mean Corpuscular Hemoglobin 26.7pg (27.0-35.0) Mean Corpuscular Hemoglobin Concent 30.5% (32.0-37.0) Red Cell Distribution Width 16.2% (12.3-15.4) Platelet Count 167bil/L (150-400) Prothrombin Time 16.9sec (8.1-12.5) Prothromb Time International Ratio 1.57ratio Sodium Level 141mEq/L (134-144) Potassium Level 3.8mEq/L (3.5-5.2) Chloride Level 99mEq/L (97-108) Carbon Dioxide Level 26mmol/L (18-29) Blood Urea Nitrogen 25mg/dL (8-27) Creatinine 1.25mg/dL (0.76-1.27) Estimat Glomerular Filtration Rate 59mL/min (>59) Glucose Level 82mg/dL (60-99) Calcium Level 9.1mg/dL (8.5-10.1) Plan Impression Patient chart reviewed, patient interviewed and anesthestic plan with risks, benefits, and alternatives discussed, and informed consent obtained. ASA Physical Status: ASA3 Severe Disease (AVR, GI bleeding) Anesthetic Plan: MAC Bene/Risks/Altern/Consents: Yes HP Complete Prior to Induction: Yes Alex Arias MD Nov 29, 2016 15:32
--- NOTE | 2016-11-29 16:22 | ENDO ---
[address] [address] ENDOSCOPY PROCEDURE PATIENT: SHARYN AGEE : 1935 MR#: [id number] ADMIT: 11/27/2016 JOB ID: [id number] DATE: 11/27/2016 OPERATION: Colonoscopy with hot snare polypectomy x2. PREOPERATIVE DIAGNOSIS: Rectal bleeding. POSTOPERATIVE DIAGNOSES: 1. There was one 7 mm sigmoid polyp removed by hot snare polypectomy. 2. There was a 5 mm rectal polyp, removed by hot snare polypectomy. 3. There was moderate diverticulosis seen in the sigmoid, descending, transverse and ascending colon with no active bleeding seen. 4. Small internal hemorrhoids. ANESTHESIA: Monitored anesthesia care. COMPLICATIONS: None. BLOOD LOSS: Minimal. DESCRIPTION OF PROCEDURE: After risks and benefits explained to the patient, informed consent was obtained. After anesthesia administered, colonoscope was inserted from rectum to the cecum and mucosa carefully examined. Prep of the patient was good. After the procedure was done, the scope withdrawn and procedure terminated. FINDINGS: Upon inspection of the anus, no masses, hemorrhoids, ulcers, fissures that were seen. Throughout the entire examination, there was a 5 mm rectal polyp and a 7 mm sigmoid polyp removed, both removed by hot snare polypectomy. There was diverticulosis moderate without active bleeding seen in the sigmoid, descending, transverse and ascending colon. Retroflexion showed small internal hemorrhoids. IMPRESSIONS: 1. Small internal hemorrhoids. 2. Moderate diverticulosis seen in the sigmoid, descending, transverse and ascending colon without active bleeding. 3. A 7 mm sigmoid polyp and a 5 mm rectal polyp, both removed by hot snare polypectomy. RECOMMENDATIONS: 1. Await pathology results. 2. Start clear liquid diet. Advance as tolerated. 3. Okay to discharge home today from a GI perspective. 4. If tubular adenoma, then repeat colonoscopy in five years.
--- NOTE | 2016-11-29 17:22 | NUR ---
Coagulation Pt concerned re: coagulation levels of blood. He has a mechanical valve and stated MD wanted to start him on Lovenox shots today. cookpaged above.
[2016-11-30 01:49] VITALS: BP 118/74; PULSE 78; RESP 18; O2SAT 94
--- NOTE | 2016-11-30 04:56 | NUR ---
Activity Pt up sitting in his chair watching televeision. Requested toothbrush and shaver. Given. Pt is aware to be very careful when shaving due to blood thinners No other needs at this time. Denies pain
[2016-11-30 05:43] VITALS: BP 107/68; PULSE 69; RESP 18; O2SAT 96
[2016-11-30 05:44] VITALS: PULSE 58
[2016-11-30 06:28] LABS: Mean Corpuscular Hemoglobin 26.9 pg (27.0-35.0)
[2016-11-30 06:33] LABS: INR 1.43 ratio
[2016-11-30 08:00] VITALS: PULSE 56
[2016-11-30] MEDS: Pantoprazole Inj 80 MG in 0.9% Sodium Chloride 80 ML IV SCH (08:15)
--- NOTE | 2016-11-30 09:11 | PCM.PNSURG ---
Subjective Date of Service: Nov 30, 2016 Date of Service: Nov 30, 2016 Subjective: No acute events overnight. Hemoglobin 8.9 this morning. No overt signs of GI bleeding overnight. Status post colonoscopy from yesterday. see note for full details. tolerating po diet Postop General: No Complaints Objective Vital Sign- Last 8 Hours Date Time Temp Pulse Resp B/P Pulse Ox O2 Delivery O2 Flow Rate FiO2 11/30/16 05:44 58 11/30/16 05:43 36.2 69 18 107/68 96 Room Air 11/30/16 01:49 36.2 78 18 118/74 94 Room Air Intake and Output- Last 8 Hour 11/30/16 Cumulative From/Thru 07:00 11/27/16 14:52 - 11/30/16 06:57 Intake Total 2718 ml Output Total 2525 ml Balance 193 ml Intake Oral 368 ml IV Total 2350 ml Output Urine Total 2525 ml # Voids 4 # Bowel Movements 6 General: Oriented X3 Neck: Supple Lungs: Clear to Auscultation Heart: Exam Unremarkable Abdomen: Benign, Soft, Non-tender, Non-distended, Normoactive bowel tones Extremities: Distal Pulses Palpable Result Diagram: 11/30/16 0605 11/29/16 0600 Assessment & Plan Impression This is an 81-year-old male with history of aortic valve replacement, on Coumadin, diverticulitis, hypothyroidism, presents here for consultation for rectal bleeding. s/p colon 11/29/2016- IMPRESSIONS: 1. Small internal hemorrhoids. 2. Moderate diverticulosis seen in the sigmoid, descending, transverse and ascending colon without active bleeding. 3. A 7 mm sigmoid polyp and a 5 mm rectal polyp, both removed by hot snare polypectomy. RECOMMENDATIONS: 1. Await pathology results. 2. Start clear liquid diet. Advance as tolerated. 3. Okay to discharge home today from a GI perspective. 4. If tubular adenoma, then repeat colonoscopy in five years. recs: 1) high fiber diet 2) ok to d/c home from gi perspective today will sign off Problems: Resuscitation Status: CPR: Attempt Resuscitation Jacob Stephens MD Nov 30, 2016 09:11
[2016-11-30 09:47] VITALS: BP 91/48; PULSE 60; RESP 16; O2SAT 99
[2016-11-30] MEDS ORDERED: ENOX150D SUBQ (10:49)
--- NOTE | 2016-11-30 11:08 | PCM.DIMED ---
Discharge Instructions Date of Service Nov 30, 2016 Dates of Hospitalization Nov 27, 2016 at 17:34 Discharge Diagnosis Discharge Diagnosis lower GI bleeding likely due to internal hemorrhoid or diverticular bleeding Medication Instructions Please use Lovenox one one dose 180mg tomorrow morning Please continue Coumadin as directed Diet Other (gently advance your diet) Activity No restrictions Call your provider Bleeding Patient Instructions You were hospitalized with bloody stools. You underwent colonoscopy which showed hemorrhoid and diverticulosis without active signs of bleeding. Please note that you can have intermittent minor episode of bleeding from hemorrhoid. Your red blood cell number was stable, didn't show any active signs of bleeding. Please note that you are encouraged to follow dietary instruction for diverticulosis. Please follow up with her primary doctor in 2 weeks Please return to hospital if you notice significant black or bloody stools, dizziness. Follow-up Provider: Bridger Hitchcock DO Follow-up with PCP in: 2 weeks Ellen Jimenez MD Nov 30, 2016 11:08
[2016-11-30] MEDS ORDERED: LOV120 SUBQ (11:21)
--- NOTE | 2016-11-30 12:07 | NUR ---
Social Work: Discharge Data: Pt is on day 3 of hospitalization. EMR reviewed. Pt discussed in rounds. requested HEALTHCARE MARKETER run Lovenox prescription for pt, pt states their preferred pharmacy is [email or web address]. HEALTHCARE MARKETER spoke with Serenity with [email or web address] who ran it and it will cost pt $12.66. No further d/c planning needs. HEALTHCARE MARKETER will continue to follow if needs arise. Assessment: Pt who is independent at baseline. Plan: Pt will d/c home via POV today. No further d/c planning needs. HEALTHCARE MARKETER will continue to follow if needs arise. RYLEE Banda
--- NOTE | 2016-11-30 13:50 | NUR ---
Discharge Pt discharged to home at 1314. TAken off unit in wheelchair, accompanied by [employer]. Valuables collected from safe in the ED and returned to pt, all other pt belongings sent with pt. Discharge instructions given and explained. With RN supervision, pt injected self with dose of lovenox, and sent home with rx for 2 more administrations of lovenox. Instructed to follow up with PCP in 2 weeks. Care notes provided. Pt vocalizes understanding and denies further questions.
--- NOTE | 2016-12-01 16:29 | PATH ---
SURGICAL PATHOLOGY Attending Physician:Jacob Stephens MD CASE STATUS: Signed Out PATIENT NAME: SHARYN AGEE JR PID: [id number] : 1935 DATE COLLECTED:11/27/2016 00:00 SPECIMEN: 1: Colon, Biopsy 2: Rectum, Biopsy CLINICAL HISTORY: GI BLEED 1). SIGMOID COLON POLYP X1 2). RECTAL POLYP X1 FINAL DIAGNOSIS: 1. Sigmoid Colon, Polyp, Biopsy: Tubular adenoma; negative for high-grade dysplasia. 2. Rectum, Polyp, Biopsy: Portions of tubular adenoma x2; negative for high-grade dysplasia. ICD10: K63.5 GROSS DESCRIPTION: The specimen is received in two formalin filled containers labeled with the patient's name. 1). The specimen is sublabeled "sigmoid colon" and consists of a 0.5 x 0.4 x 0.4 CM portion of tissue which is entirely submitted in cassette 1A. 2). The specimen is sublabeled "rectal polyp" and consists of 2 portions of tissue which aggregate to 0.5 x 0.5 x 0.4 CM. The specimen is entirely submitted in cassette 2A. 11/30/2016 [facility] ICD-9 CODES: CPT CODES: 1: 70584 2: 09055 Electronically Signed Out Karla Mistry MD [facility], [place] [address] Technical component performed at [facility], [facility] [address], [place], [address]
--- NOTE | 2016-12-02 15:03 | PCM.DC.MED ---
Discharge Summary Date of Service Nov 30, 2016 Dates of Hospitalization Date of Hospital Admission Nov 27, 2016 at 17:34 Date of Discharge: Nov 30, 2016 Providers: Admitting Physician: Nayan Cash Primary Care Physician: Bridger Hitchcock DO Attending Physician: Nayan Cash Diagnosis at Time of Discharge Diagnosis at Time of Discharge acute problems lower GI bleeding likely due to internal hemorrhoid or diverticular bleeding History of mechanical aortic valve and chronic anticoagulation Acute kidney injury, prerenal chronic problems # Chronic normocytic anemia. # History of coronary artery disease and hypertension. # Hypothyroidism, chronic # Possible chronic diastolic heart failure with chronic lower extremity edema Consultations GI Procedures Invasive Procedures SURGICAL PATHOLOGY Attending Physician:Jacob Stephens MD CASE STATUS: Signed Out PATIENT NAME: SHARYN AGEE JR PID: [id number] : 1935 DATE COLLECTED:11/27/2016 00:00 SPECIMEN: 1: Colon, Biopsy 2: Rectum, Biopsy CLINICAL HISTORY: GI BLEED 1). SIGMOID COLON POLYP X1 2). RECTAL POLYP X1 FINAL DIAGNOSIS: 1. Sigmoid Colon, Polyp, Biopsy: Tubular adenoma; negative for high-grade dysplasia. 2. Rectum, Polyp, Biopsy: Portions of tubular adenoma x2; negative for high-grade dysplasia. ICD10: K63.5 ENDOSCOPY PROCEDURE PATIENT: SHARYN AGEE : 1935 MR#: [id number] ADMIT: 11/27/2016 JOB ID: [id number] DATE: 11/27/2016 OPERATION: Colonoscopy with hot snare polypectomy x2. PREOPERATIVE DIAGNOSIS: Rectal bleeding. POSTOPERATIVE DIAGNOSES: 1. There was one 7 mm sigmoid polyp removed by hot snare polypectomy. 2. There was a 5 mm rectal polyp, removed by hot snare polypectomy. 3. There was moderate diverticulosis seen in the sigmoid, descending, transverse and ascending colon with no active bleeding seen. 4. Small internal hemorrhoids. ANESTHESIA: Monitored anesthesia care. COMPLICATIONS: None. BLOOD LOSS: Minimal. DESCRIPTION OF PROCEDURE: After risks and benefits explained to the patient, informed consent was obtained. After anesthesia administered, colonoscope was inserted from rectum to the cecum and mucosa carefully examined. Prep of the patient was good. After the procedure was done, the scope withdrawn and procedure terminated. FINDINGS: Upon inspection of the anus, no masses, hemorrhoids, ulcers, fissures that were seen. Throughout the entire examination, there was a 5 mm rectal polyp and a 7 mm sigmoid polyp removed, both removed by hot snare polypectomy. There was diverticulosis moderate without active bleeding seen in the sigmoid, descending, transverse and ascending colon. Retroflexion showed small internal hemorrhoids. IMPRESSIONS: 1. Small internal hemorrhoids. 2. Moderate diverticulosis seen in the sigmoid, descending, transverse and ascending colon without active bleeding. 3. A 7 mm sigmoid polyp and a 5 mm rectal polyp, both removed by hot snare polypectomy. RECOMMENDATIONS: 1. Await pathology results. 2. Start clear liquid diet. Advance as tolerated. 3. Okay to discharge home today from a GI perspective. 4. If tubular adenoma, then repeat colonoscopy in five years. Jacob Stephens MD 11/29/16 1607 <Electronically signed by Jacob Stephens MD> 11/29/162057 Brief History HPI obtained by Shailesh on 11/27 81 year old male with a history of diverticulosis, and aortic valve replacement with a mechanical valve and thus on chronic anticoagulation with Coumadin as well as distant history of peptic ulcer disease presents today with concern about blood in his stool. He says that he occasionally has hemorrhoidal bleeds but two days ago noticed that his stool color was different and appeared "brownish-red" and "mucousy". Last night he couldn't sleep because of his heart racing somewhat and this morning he had two more episodes of "brownish-red " stools. He had mild lightheadedness and mild left lower quadrant abdominal discomfort but managed to finish filing his taxes and running his errands. In the ED it is reported that patient's digital rectal exam was notable for fresh red blood. He received 10mg of PO Vitamin K and GI service has been notified and consulted. Patient otherwise denies any chest pain, SOB, nausea, vomiting or stomach pain. He denies any lightheadedness right now. Hospital Course 81 year old male with a history of diverticulosis, and aortic valve replacement with a mechanical valve and thus on chronic anticoagulation with Coumadin as well as distant history of peptic ulcer disease presents with concern about blood in his stool. acute problems # Acute gastrointestinal bleed, present on admission, patient was started on PPI drip. pt received Vit K 10mg PO in the ED. underwent colonscopy by GI which showed internal hemorrhoid and diverticulosis without active bleeding. Patient didn't have further episode of bleeding, h/h was stable without symptoms, diet was advanced and pt tolerated well. Patient deemed stable for d/c to home. # History of mechanical aortic valve and chronic anticoagulation, pt received vitK prior to colonoscopy, Coumadin resumed with Lovenox bridging. plan to discharge to discharge 120mg bid for one more days. INR upon discharge was 1.43, # Acute kidney injury. present on admission. Resolved, likely pre-renal with IVF. chronic problems # Chronic normocytic anemia. present on admission. stable, # History of coronary artery disease and hypertension. currently stable # Hypothyroidism, chronic. presume stable # Possible chronic diastolic heart failure with chronic lower extremity edema. appears stable and compensated at this time. Exam Vital Signs (Last) Date Time Temp Pulse Resp B/P Pulse Ox O2 Delivery O2 Flow Rate FiO2 11/30/16 09:47 36.3 60 16 91/48 99 Room Air Exam NAD, comfortably laying down on the bed no JVD, MMM, no LAD RRR, nl s1, s2 no mrg CTAB, no w,c S,ND,NT,normoactive BS+ warm, no edema, pulses 2/2 Test 11/27/16 15:55 11/27/16 17:05 11/28/16 04:29 11/28/16 06:15 Neutrophils (%) (Auto) 75.2% (40-74) Lymphocytes (%) (Auto) 11.5% (14-46) Monocytes (%) (Auto) 12.5% (4-12) Eosinophils (%) (Auto) 0% (0-5) Basophils (%) (Auto) 0.6% (0-3) Urinalysis Comment None Urine Culture Reflexed Not indicated Urine Color Yellow (YELLOW) Urine Appearance Clear (CLEAR,HAZY) Urine pH 5.5 (5.0-8.0) Urine Specific [place] 1.010 (1.003-1.035) Urine Protein Negativemg/dL (NEG,TRACE) Urine Glucose (UA) Negativemg/dL (NEGATIVE) Urine Ketones Negativemg/dL (NEGATIVE) Urine Occult Blood Negative (NEGATIVE) Urine Nitrite Negative (NEGATIVE) Urine Bilirubin Negative (NEGATIVE) Urine Urobilinogen Normalmg/dL (NORMAL) Urine Leukocyte Esterase Negative (NEGATIVE) Urine RBC 0-2/hpf (0-2) Urine WBC 0-5/hpf (0-5) Urine Epithelial Cells Occasional/hpf (NONE-MOD) Urine Crystals None seen (NONE SEEN) Urine Bacteria None/hpf (NONE-FEW) Urine Hyaline Casts None/lpf (NONE) Urine Granular Casts None seen (NONE SEEN) Urine Waxy Casts None seen (NONE SEEN) Urine Red Blood Cell Casts None seen (NONE SEEN) Urine White Blood Cell Casts None seen (NONE SEEN) Urine Mucus Present (None Seen) Urine Trichomonas None seen (NONE SEEN) Urine Yeast None (NONE SEEN) Hold Urine Received (Received) Activated Partial Thromboplast Time 36.7sec (22.8-33.0) Magnesium Level 2.3mg/dL (1.6-2.6) Total Bilirubin 1.4mg/dL (0.0-1.2) Aspartate Amino Transf (AST/SGOT) 28U/L (0-50) Alanine Aminotransferase (ALT/SGPT) 12U/L (0-44) Alkaline Phosphatase 143U/L (25-160) Total Protein 6.4g/dL (6.4-8.4) Albumin 3.3g/dL (3.4-5.0) Thyroid Stimulating Hormone (TSH) 5.260uIU/mL (0.450-4.500) Free Thyroxine Index 2.0 (1.2-4.9) Thyroxine (T4) 4.8ug/dL (4.5-12.0) Triiodothyronine (T3) Uptake 41% (24-39) Test 11/29/16 06:00 11/30/16 06:05 Sodium Level 141mEq/L (134-144) Potassium Level 3.8mEq/L (3.5-5.2) Chloride Level 99mEq/L (97-108) Carbon Dioxide Level 26mmol/L (18-29) Blood Urea Nitrogen 25mg/dL (8-27) Creatinine 1.25mg/dL (0.76-1.27) Estimat Glomerular Filtration Rate 59mL/min (>59) Glucose Level 82mg/dL (60-99) Calcium Level 9.1mg/dL (8.5-10.1) White Blood Count 3.1th/mm3 (3.8-10.1) Red Blood Count 3.31mil/mm3 (4.40-5.80) Hemoglobin 8.9g/dL (13.8-17.2) Hematocrit 28.8% (41.0-50.0) Mean Corpuscular Volume 87.0fL (81-100) Mean Corpuscular Hemoglobin 26.9pg (27.0-35.0) Mean Corpuscular Hemoglobin Concent 30.9% (32.0-37.0) Red Cell Distribution Width 16.3% (12.3-15.4) Platelet Count 188bil/L (150-400) Prothrombin Time 15.4sec (8.1-12.5) Prothromb Time International Ratio 1.43ratio Discharge Medications Discharge Medications Aspirin (Aspirin) 81 Mg Tablet 81 MG PO DAILYWD (Reported) Bumetanide (Bumetanide) 2 Mg Tablet 4 MG PO QAM (Reported) Cholecalciferol (Vitamin D3) (Vitamin D3) 2,000 Unit Tablet 2,000 UNIT PO DAILY (Reported) Enoxaparin (Lovenox) 120 Mg/0.8 Ml Syringe 120 MG SUBQ BID Prescribed by: ELLEN ALCOCER MD Gluc HCl/Csa/Antwon Hy/Hyalur AC (Glucosamine Chondroitin Cap) 1 Each Capsule 1 EACH PO BID (Reported) Levothyroxine (Levothyroxine) 100 Mcg Tablet 100 MCG PO QAM (Reported) Lisinopril (Lisinopril) 10 Mg Tablet 10 MG PO QAM (Reported) Metoprolol Tartrate (Metoprolol Tartrate) 25 Mg Tablet 12.5 MG PO BID (Reported ) Multivit with Calcium,Iron,Min (Therapeutic M) 1 Each Tablet 1 EACH PO DAILY ( Reported) Potassium Chloride (Potassium Chloride) 10 Meq Capsule.er 20 MEQ PO DAILYWM ( Reported) TAKE WITH FOOD Tamsulosin ER (Tamsulosin ER) 0.4 Mg Cap.er.24h 0.4 MG PO DAILYWM (Reported) Ubidecarenone (Coenzyme Q-10) 200 Mg Capsule 200 MG PO DAILY (Reported) Warfarin Sodium (Warfarin Sodium) 5 Mg Tablet 7.5 MG PO MON/FRI (Reported) WARFARIN 7.5 MG MON/FRI AND 5 MG ALL OTHER DAYS Warfarin Sodium (Warfarin Sodium) 5 Mg Tablet 5 MG PO DAILY EXCEPT MON/FRI ( Reported) WARFARIN 7.5 MG MON/FRI AND 5 MG ALL OTHER DAYS Additional med instructions Please use Lovenox one one dose 180mg tomorrow morning Please continue Coumadin as directed Followup Plan Disposition: home Discharge Diet: Other (gently advance your diet) Discharge Activity: No restrictions Patient Instructions You were hospitalized with bloody stools. You underwent colonoscopy which showed hemorrhoid and diverticulosis without active signs of bleeding. Please note that you can have intermittent minor episode of bleeding from hemorrhoid. Your red blood cell number was stable, didn't show any active signs of bleeding. Please note that you are encouraged to follow dietary instruction for diverticulosis. Please follow up with her primary doctor in 2 weeks Please return to hospital if you notice significant black or bloody stools, dizziness. Follow-up Provider: Bridger Hitchcock DO Follow-up with PCP in: 2 weeks Time spent 65min Ellen Alcocer MD Nov 30, 2016 21:32
[2017-01-17] MEDS ORDERED: LEVO112T4 PO (14:18)
[2017-01-17] MEDS ORDERED: SILO8CAP PO (14:24)
[2017-01-17] MEDS ORDERED: SELE180S7 TP (14:24)
[2017-01-17] MEDS ORDERED: OMEP40CA36 PO (14:24)
[2017-01-17] MEDS ORDERED: POTA10TA7 PO (14:24)
[2017-01-17] MEDS ORDERED: KEN1O TOP (14:24)
[2017-01-17] MEDS ORDERED: [UNRECOGNIZED DRUG - CODE] TP (14:24)
[2017-01-17] MEDS ORDERED: SILV20CR4 TP (14:24)
== END 2016-11-30 13:18 | disposition home or self-care (01) | DRG 378 ==
LOC: SED 14:36 → MPC 17:34
PROVIDERS: ADMIT Internal Medicine; ATTEND Internal Medicine
PROC: 0DBP8ZZ Excision of Rectum, Via Natural or Artificial Opening Endoscopic (ICD-10-PCS; principal; 2016-11-27)
PROC: 0DBN8ZZ Excision of Sigmoid Colon, Via Natural or Artificial Opening Endoscopic (ICD-10-PCS; 2016-11-27)
DX: K92.1 Melena (principal); N17.9 Acute kidney failure, unspecified; I50.32 Chronic diastolic (congestive) heart failure; I25.10 Atherosclerotic heart disease of native coronary artery without angina pectoris; I10 Essential (primary) hypertension; E03.9 Hypothyroidism, unspecified; Z79.01 Long term (current) use of anticoagulants; Z95.2 Presence of prosthetic heart valve; D64.9 Anemia, unspecified; D12.5 Benign neoplasm of sigmoid colon; K62.1 Rectal polyp; K64.8 Other hemorrhoids; K57.30 Diverticulosis of large intestine without perforation or abscess without bleeding

== ENCOUNTER 2017-01-18 11:55 | Day surgery (SDC) | payer MEDICARE ==
[~2017-01-18] VITALS: Ht 182.9 cm; Wt 128.0 kg
[~2017-01-18 11:55] MED LIST changes: -ANT25 PO; -ASPI81TA35 PO; +BUME2TAB3 PO; -FURO80TA PO; -K20 PO; +KEN1O TOP; +LEVO112T4 PO; +LISI10TA PO; -LISI40TA13 PO; -LOPRESSOR25 MG PO; -LOV120 SQ; +Lactated Ringer's 1,000 ML IV ONE; +METO25TA6 PO; +MULT-140 PO; +OMEP40CA36 PO; +POTA10CA42 PO; +POTA10TA7 PO; +SELE180S7 TP; +SILO8CAP PO; +SILV20CR4 TP; +TAMS0.4C29 PO; +UBID200C31 PO; +WARF5TAB7 PO; -WARF7.5T2 PO; +[UNRECOGNIZED DRUG - CODE] TP
[2017-01-18] MEDS ORDERED: Propofol 10,000 mCg/mL 20 mL Inj ONE (11:56)
[2017-01-18 13:10] VITALS: BP 120/79; PULSE 77; RESP 16; O2SAT 99
--- NOTE | 2017-01-18 13:45 | PCM.HPANE ---
Patient Data Surgeon Admitting Provider: Attending Provider:Shiv Ansari MD Primary Care Physician:Bridger Hitchcock DO Other Provider:Eun Antony Anesthesia Reason for Visit Anemia Ht/WT & BMI Height (Feet): 6 Height (Inches): 0 Weight (Kilograms): 128 Body Mass Index 38.00 Allergies Coded Allergies: acetaminophen (Verified Allergy, Intermediate, Rash,Itching,, 01/17/17) cephalexin (Verified Allergy, Unknown, Rash,Itching,, 01/17/17) Past Anesthesia History Anesthesia History: Denies:: Abnormal Airway, Anesthesia Reactions, Difficult Intubation, Fam Anesthesia Reaction, Fam Malignant Hypertherm, Malignant Hyperthermia Diabetes History Hx Diabetes?: No MRSA MRSA: No Medications Blood Thinner: Coumadin Last Dose Blood Thinner: Jan 13, 2017 Home Meds Incl Beta Eden: Yes Date Beta Eden Taken: Jan 18, 2017 Time Beta Eden Taken: 06 Reported Medications Urea (Ure-K)50 % Cream..g.142 Gm TP TID 01/17/17 Triamcinolone Acet (Triamcinolone Acetonide Ointment)1 Applic/0.25 Gm Oint60 Applic TOP BID #60 GM Ref 0 01/17/17 Silver Sulfadiazine (Silvadene)20 Gm Cream..g.20 Gm TP BID 01/17/17 Selenium Sulfide (Selrx)180 Ml Togmyjs384 Ml TP WEEKLY 01/17/17 Silodosin (Rapaflo)8 Mg Capsule8 Mg PO DAILY 01/17/17 Potassium Chloride ER (Klor-Con 10)10 Meq Qnsgfa09 Meq PO DAILY Ref 0 01/17/17 Levothyroxine 112 Mcg Mobvsp994 Mcg PO DAILY For Thyroid Replacement Ref 0 01/17/17 Multivit with Calcium,Iron,Min (Therapeutic M)1 Each Tablet1 Each PO DAILY 11/27/16 Ubidecarenone (Coenzyme Q-10)200 Mg Shfuqjk160 Mg PO DAILY 11/27/16 Metoprolol Tartrate 25 Mg Aotgvs36.5 Mg PO BID 30 Days Ref 0 11/27/16 Warfarin Sodium 5 Mg Tablet7.5 Mg PO MON/FRI 30 Days Ref 0 WARFARIN 7.5 MG MON/FRI AND 5 MG ALL OTHER DAYS 11/27/16 Tamsulosin ER 0.4 Mg Cap.er.24h0.4 Mg PO DAILYWM Ref 0 11/27/16 Lisinopril 10 Mg Sxypht76 Mg PO QAM 30 Days Ref 0 11/27/16 Bumetanide 2 Mg Tablet4 Mg PO QAM Ref 0 11/27/16 Discontinued Reported Medications Omeprazole 40 Mg Capsule.dr40 Mg PO BID Ref 0 01/17/17 Potassium Chloride 10 Meq Capsule.er20 Meq PO DAILYWM 30 Days Ref 0 TAKE WITH FOOD 11/27/16 Gluc HCl/Csa/Antwon Hy/Hyalur AC (Glucosamine Chondroitin Cap)1 Each Capsule1 Each PO BID 11/27/16 Cholecalciferol (Vitamin D3) (Vitamin D3)2,000 Unit Tablet2,000 Unit PO DAILY 11/27/16 Aspirin 81 Mg Ebgfif08 Mg PO DAILYWD Ref 0 11/27/16 Levothyroxine 100 Mcg Wsblqq729 Mcg PO QAM For Thyroid Replacement Ref 0 11/27/16 Warfarin Sodium 5 Mg Tablet5 Mg PO DAILY EXCEPT MON/FRI 30 Days Ref 0 WARFARIN 7.5 MG MON/FRI AND 5 MG ALL OTHER DAYS 11/27/16 Discontinued Scripts Enoxaparin (Lovenox)120 Mg/0.8 Ml Quqkypy110 Mg SUBQ BID #2 SYR Ref 0 Prov:Ellen Jimenez MD 11/30/16 History History of ENT Problems?: No HEENT History: Denies:: Abnormal Airway Cataracts Difficult Intubation Dysphagia Hearing Problem Sinus Problem Denture Type: None Teeth Condition: Within Normal Limits Hx of Heart Problems?: Yes Cardiovascular History: Positive for:: Atrial Fibrillation Cardiac Surgery (Valve replacement 11yrs ago) Edema (chronic) Hypertension Valvular Heart Disease Denies:: AICD Chest Pain Congestive Heart Failure Heart Murmur Irregular Heartbeat Pacemaker Thrombophlebitis Hx of Respiratory Problem?: No Respiratory History: Denies:: Asthma COPD Chest Surgery Cough Dyspnea Emphysema Hemoptysis Pneumonia Tuberculosis Hx Neurologic Problems?: No Neurological History: Denies:: Alzheimer's Disease CVA Dementia Dizziness Headaches Multiple Sclerosis Parkinson's Disease Seizures Hx of GI Problems?: Yes Hx of Problems?: Yes Genitourinary History: Positive for:: Kidney Stones Denies:: HX of Hemodialysis Urinary Tract Infection HX of Peritoneal Dialysis: No Male Hx: Denies:: Prostate Problems Scrotal Mass Testicular Surgery Skin History: Positive for:: History Skin Disorders? (Skin cancers. sebborhea dermatitis) Hx Musculoskeletal Problems?: No Musculoskeletal History: Denies:: Back Injury Fibromyalgia Joint Replacement Musculoskeletal Trauma Hx of Psycho/Social Problems?: No Psycho Social History: Denies:: Anxiety Bipolar Disorder Hx Depression Suicide Attempt Hx Surgeries?: Yes (tonsillectomy, appendectomy, aortic valve repl, bladder cancer) Hx Any Other Health Problems?: Yes Other History: Positive for:: Cancer (bladder cancer, skin ) Hospitalization Thyroid Disease (hypothryoid) Denies:: Endocrine Disease History Blood Transfusions: Positive for:: Blood Transfusions Denies:: Blood Transfuse Reaction Hx Diabetes: No Hx Alcohol Use: Yes (1 glass wine / day)Hx Substance Use: No Smoking Status: Never Smoker Have You Smoked inLast 12 mo: No Stop/Bang Treated for Sleep Apnea?: Yes (being tested) Do You Have a CPAP Machine?: No S-Snoring: Do You Snore Loudly: Yes T-Tired: feel tired, fatigued: No O-Obsered: Observed not breath: No P-Blood Pressure: treated: Yes B- Body Mass Index > 35 kg/m2: Yes A- Age over 50: Yes N- Neck Large Circumference: No G- Gender Male: Yes LUCY Total Score: 5 Risk Assessment Category Category 1A: Patient has history of documented sleep apnea, and HAS NOT received any narcotic, sedative or anesthesia administration during this stay. Category 1B: Patient has history of documented sleep apnea, and HAS received any narcotic , sedative or anesthesia administration during this stay Category 2: Patient has SUSPECTED Obstructive Sleep Apnea, and HAS received any narcotic , sedative or anesthesia administration during this stay. Category 3: Patient has SUSPECTED Obstructive Sleep Apnea and HAS NOT received narcotic, sedative or anesthesia administration during this stay. Category 4: Outpatient in Procedural Areas with known sleep apnea or who screen positive for High Risk via the STOP/BANG questionnaire. Exam Exam Vital Signs Vital Signs Date Time Temp Pulse Resp B/P Pulse Ox O2 Delivery O2 Flow Rate FiO2 01/18/17 13:10 36 77 16 120/79 99 Room Air General Appearance: Alert, Oriented X3, Cooperative, No Acute Distress HEENT/AIRWAY: MP 2 Lungs: Clear to Auscultation Heart: Exam Unremarkable Plan Impression Patient chart reviewed, patient interviewed and anesthestic plan with risks, benefits, and alternatives discussed, and informed consent obtained. ASA Physical Status: ASA2 Mod Systemic Disease Anesthetic Plan: MAC Bene/Risks/Altern/Consents: Yes HP Complete Prior to Induction: Yes James Jacinto MD Jan 18, 2017 13:45
[2017-01-18] MEDS ORDERED: Lactated Ringer's 1,000 ML IV SCH (13:51)
[2017-01-18] MEDS ORDERED: Ondansetron 2 mg/mL 2 mL Inj IVPUSH PRN (13:55)
[2017-01-18] MEDS ORDERED: MetoCLOpramide 5 mg/mL 2 mL Inj IVPUSH PRN (13:55)
[2017-01-18] MEDS ORDERED: Lactated Ringer's 1,000 ML IV ONE (14:07)
--- NOTE | 2017-01-18 14:09 | PCM.ENDEGD ---
EGD Date of Service: Jan 18, 2017 Physician Shiv Ansari MD Pre Procedure Diagnosis: Anemia Post Procedure Dx & Findings: Healing duodenal ulcer healing gastric ulcer and Mcdaniels's Procedure Esophagogastroduodenoscopy PROCEDURE IN DETAIL: After proper sedation, Olympus video endoscope was inserted into patient's mouth and esophagus was successfully intubated. Scope introduced esophagus. Esophagus showed normal shiny whitish mucosa consistent with squamous cell component. Z line was at 45 cm from the incisors. 2 cm of salmon-colored mucosa noted. 4 quadrant biopsies obtained every 2 cm. Narrowing banding used. Also erosion mass nodule noted. Scope further advanced to the stomach. There were 4 edematous healing ulcers varying from half a centimeter or 2 cm. Biopsies obtained at all sites. Cardia fundus body antrum pylorus were all visualized. Retroflexion was done. Stomach was easily inflated and deflatable using air. Scope further advanced to the distal duodenum. Duodenum revealed normal villous structures with normal appearing folds without any mass ulcer erosion. Duodenal bulb showed edema redness and the ulcer as well. The ulcer was about 3 mm in size. Impression Healing duodenal ulcer healing gastric ulcer and Mcdaniels's Recommendation Continue PPI Follow-up with Dr. Molina in the GI clinic Presedation Assessment Risks and Benefits Informed consent was obtained from the patient after all risks and benefits including but not limited to drug reaction, infection, pain, bleeding, perforation, as well as alternatives were discussed. Patient monitoring Continuous pulse oximetry, cardiac monitoring, blood pressure monitoring, IV access, and oxygen at 2L per nasal cannula. Complications There were no periprocedural complications identified. Post Procedure Plan Post Procedure Recommendations 1. Restrict activities today. 2. Resume normal activities in the morning. 3. Resume medications. 4. GERD behavioral modification: - Avoid fatty, acidic, spicy, large meals - Do not lie down after meals - Do not eat or drink anything for at least 2 1/2 hours before going to bed at night - Discontinue tobacco and alcohol - Decrease or avoid caffeine - Avoid chocolate and mints - Decrease weight - Avoid aspirin and non steroidal anti-inflammatory agents (NSAID) such as Aleve, Advil, Mobic, Naproxen, Ibuprofen, etc 5. Add proton pump inhibitor. Take 30 minutes before 1st meal of the day. 6. Patient informed of normal post procedure side effects as bloating, drowsiness, blood streaking in the stool 7. If gastric biopsy reveal H.pylori, continue with appropriate treatment 8. If small bowel biopsy reveals celiac, continue with appropriate treatment 9. Please don't hesitate to call me with any questions Shiv Ansari MD Jan 18, 2017 14:09
[2017-01-18 14:10] VITALS: BP 107/65; PULSE 63; RESP 16; O2SAT 100
[2017-01-18 14:20] VITALS: BP 100/69; PULSE 83; RESP 16; O2SAT 100
--- NOTE | 2017-01-18 14:21 | PCM.ANEP1 ---
Post Anesthesia PACU Phase 1 Assessment Vital Signs Vital Signs Date Time Temp Pulse Resp B/P Pulse Ox O2 Delivery O2 Flow Rate FiO2 01/18/17 14:10 63 16 107/65 100 Room Air 01/18/17 13:10 36 77 16 120/79 99 Room Air Anesthetic Administered: GA Level of Alertness: Awake, talking HOWARD's with Equal Strength: Yes Pain: No Nausea or Vomiting: No CV Function & Hydration Stable: Yes Airway Device: Oxygen Delivery: Room Air Lungs: Clear to Auscultation PACU Phase 2 Assessment Complications: No Follow up Care: No Patient Instructions Provided: N/A James Jacinto MD Jan 18, 2017 14:21
[2017-01-18 14:30] VITALS: BP 103/73; PULSE 63; RESP 16; O2SAT 100
[2017-01-18 14:40] VITALS: BP 103/67; PULSE 61; RESP 16; O2SAT 100
--- NOTE | 2017-01-22 14:26 | PATH ---
SURGICAL PATHOLOGY Attending Physician:Shiv Ansari M.D. CASE STATUS: Signed Out PATIENT NAME: SHARYN AGEE JR PID: [id number] : 1935 DATE COLLECTED:01/18/2017 00:00 SPECIMEN: 1: Duodenum, Biopsy 2: Esophagus, Biopsy 3: Gastric, Biopsy CLINICAL HISTORY: 1. DUODENAL BULB ULCER BX 2. DISTAL ESOPHAGUS BX 3. GASTRIC BX FINAL DIAGNOSIS: 1.DUODENAL BULB ULCER BIOPSY: TISSUE CONSISTENT WITH GASTRIC HETEROTOPIA, NEGATIVE FOR ATYPIA. Negative for significant inflammation and definitive evidence of ulceration. 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 No squamous mucosa identified. Negative for dysplasia and malignancy. 3.GASTRIC BIOPSY: SUPERFICIAL FRAGMENTS OF ANTRAL MUCOSA NEGATIVE FOR SIGNIFICANT INFLAMMATION. Negative for evidence of Helicobacter on H&E stain. Negative for intestinal metaplasia. Negative for dysplasia and malignancy. ICD10 K22.70 NOTE: As part of a routine quality compliance coordinator, Dr. Brea Green has also reviewed part 1 of this case and agrees with the diagnosis. GROSS DESCRIPTION: The specimen is received in three formalin filled containers labeled with the patient's name. 1). The specimen is sublabeled "duodenal bulb ulcer" and consists of 2 tiny portions of tissue which aggregate to 0.2 x 0.2 x 0.1 CM. The specimen is entirely submitted in cassette 1A. 2). The specimen is sublabeled "distal esophagus" and consists of 3 extremely tiny portions of tissue which aggregate to 1 x 0.1 x 0.1 CM. The specimen is entirely submitted in cassette 2A. 3). The specimen is sublabeled "gastric" and consists of 3 extremely tiny portions of tissue which aggregate to 0.2 x 0.2 x 0.2 CM. The specimen is entirely submitted in cassette 3A. 01/19/2017 [facility] MICRO DESCRIPTION: See diagnosis. ICD-9 CODES: CPT CODES: 1: 72033 2: 74965 3: 15125 Electronically Signed Out Giovani Reyes MD [facility] Pathology [facility] [address], [place] [address] Technical component performed at [facility], [facility] [address], [address]
== END 2017-01-18 23:59 | disposition home or self-care (01) ==
LOC: END 11:55
PROVIDERS: ATTEND Internal Medicine
DX: K26.9 Duodenal ulcer, unspecified as acute or chronic, without hemorrhage or perforation (principal); K22.70 Barrett's esophagus without dysplasia; K25.9 Gastric ulcer, unspecified as acute or chronic, without hemorrhage or perforation; I10 Essential (primary) hypertension; D64.9 Anemia, unspecified; I48.91 Unspecified atrial fibrillation; Z79.01 Long term (current) use of anticoagulants; I25.10 Atherosclerotic heart disease of native coronary artery without angina pectoris; Z95.1 Presence of aortocoronary bypass graft; Z95.2 Presence of prosthetic heart valve
CPT/HCPCS: 43239; 88305; J7120